=== PATIENT | female | born 1955 | race Asian ===

== ENCOUNTER 2021-04-23 08:50 | Inpatient (IN) | payer OTHER ==
[~2021-04-23] VITALS: Ht 154.9 cm; Wt 44.5 kg
[2021-04-23] MEDS ORDERED: ATOR40TA28 PO (08:56)
[2021-04-23] MEDS ORDERED: SACU1TAB PO (08:56)
[2021-04-23] MEDS ORDERED: MIRT30 PO (08:56)
[2021-04-23] MEDS ORDERED: FURO40 PO (08:56)
[2021-04-23 09:40] LABS: BASOPHILS % (AUTO) 1.2 % (0.0-2.0); EOSINOPHILS % (AUTO) 1.2 % (1.0-6.0); HEMATOCRIT 36.5 % (36-46); HEMOGLOBIN 12.1 g/dL (12.0-16.0); LYMPHOCYTES # (AUTO) 1.4 K/uL (1.0-4.8); LYMPHOCYTES % (AUTO) 25.2 % (22.0-44.0); MEAN CORPUSCULAR HEMOGLOBIN 30.7 pg (26.0-34.0); MEAN CORPUSCULAR VOLUME 93 fL (80-100); MONOCYTES # (AUTO) 0.3 K/uL (0.1-1.0); MONOCYTES % (AUTO) 5.7 % (2.0-9.0); NEUTROPHILS # (AUTO) 3.7 K/uL (1.8-7.7); NEUTROPHILS % (AUTO) 66.7 % (40.0-70.0); PLATELET COUNT (AUTO) 243 K/uL (150-450); RED BLOOD CELL COUNT(AUTO) 3.93 MIL/uL (4.00-5.20); RED CELL DISTRIBUTION WIDTH 12.9 % (11.5-14.5)
[2021-04-23 09:54] LABS: ANION GAP 10 mmol/L (8-16); CALCIUM, TOTAL 8.7 mg/dL (8.8-10.5); CARBON DIOXIDE 26 mmol/L (22-29); CHLORIDE 107 mmol/L (98-107); CREATININE 0.84 mg/dL (0.60-1.30); GLOMERULAR FILTR. RATE CALC > 60 mL/min (>60); GLUCOSE,RANDOM 103 mg/dL (70-110); POTASSIUM 4.3 mmol/L (3.5-5.1); SODIUM SERUM 143 mmol/L (136-145); UREA NITROGEN, BLOOD 21 mg/dL (7-18)
[2021-04-23 09:56] LABS: B-TYPE NATRIURETIC PEPTIDE 1150 pg/mL (0-100)
[2021-04-23 10:00] LABS: ALANINE AMINOTRANSFERASE 42 U/L (12-78); ALBUMIN 3.5 g/dL (3.4-5.0); ALKALINE PHOSPHATASE 71 U/L (46-116); ASPARTATE AMINOTRANSFERASE 36 U/L (15-37); BILIRUBIN,TOTAL 0.7 mg/dL (0.1-1.0); TOTAL PROTEIN, SERUM 7.5 g/dL (6.4-8.2)
[2021-04-23] MEDS ORDERED: ASPIRIN 81 MG CHEWABLE TABLET PO ONE (10:30)
[2021-04-23] MEDS ORDERED: NITROGLYCERIN 2% (1 GM=INCH) PACKET TP ONE (10:30)
[2021-04-23] MEDS ORDERED: FUROSEMIDE 40 MG/4 ML VIAL IVP ONE (11:00)
[2021-04-23 11:01] LABS: COVID AG,FIA SOURCE NASOPHARYNGEAL
[2021-04-23 11:14] LABS: PROTHROMBIN TIME 10.6 SEC (9.4-11.6)
[2021-04-23] MEDS ORDERED: HEPARIN SODIUM,PORCINE 5,000 UNITS/ML VIAL IVP ONE (11:30)
[2021-04-23] MEDS ORDERED: HEPARIN SODIUM 25000 UNITS/D5W 250 ML IV PRN (11:30)
[2021-04-23] MEDS ORDERED: ZOLPIDEM TARTRATE 5 MG TABLET PO PRN (11:45)
[2021-04-23] MEDS ORDERED: HEPARIN SODIUM,PORCINE 5,000 UNITS/ML VIAL IVP PRN ×2 (11:45)
[2021-04-23] MEDS ORDERED: MORPHINE SULFATE 2 MG/ML SYRINGE IVP PRN (11:45)
[2021-04-23] MEDS ORDERED: MAGNESIUM HYDROXIDE SUSPENSION 30 ML UDCUP PO PRN (11:45)
[2021-04-23] MEDS ORDERED: HYDROCODONE/ACETAMINOPHEN 5-325 MG TABLET PO PRN (11:45)
[2021-04-23] MEDS ORDERED: ONDANSETRON HCL 4 MG/2 ML VIAL IVP PRN (11:45)
[2021-04-23] MEDS ORDERED: BISACODYL 10 MG RECTAL RECTAL SUPPOSITORY PR PRN (11:45)
[2021-04-23] MEDS: ATORVASTATIN CALCIUM 40 MG TABLET PO SCH (14:32)
[2021-04-23] MEDS: METOPROLOL SUCCINATE 25 MG ER TABLET PO SCH (14:32)
[2021-04-23 20:49] VITALS: BP 118/66
[2021-04-23] MEDS: DOCUSATE SODIUM 100 MG CAPSULE PO SCH (20:58)
[2021-04-23] MEDS: FUROSEMIDE 20 MG/2 ML VIAL IVP SCH (20:59)
[2021-04-23] MEDS: SACUBITRIL/VALSARTAN 24-26 MG TABLET PO SCH (20:59)
[2021-04-23] MEDS: ACETAMINOPHEN 325 MG TABLET PO PRN (21:00)
[2021-04-23 23:30] VITALS: BP 107/62
[2021-04-24] MEDS ORDERED: HEPARIN SODIUM,PORCINE 5,000 UNITS/ML VIAL IVP PRN ×2 (00:45)
[2021-04-24] MEDS ORDERED: HEPARIN SODIUM,PORCINE 5,000 UNITS/ML VIAL IVP ONE (00:45)
[2021-04-24] MEDS ORDERED: HEPARIN SODIUM 25000 UNITS/D5W 250 ML IV PRN (00:45)
[2021-04-24 04:17] VITALS: BP 96/58
[2021-04-24 06:44] LABS: BASOPHILS % (AUTO) 1.6 % (0.0-2.0); HEMATOCRIT 42.2 % (36-46); HEMOGLOBIN 13.9 g/dL (12.0-16.0); LYMPHOCYTES # (AUTO) 2.6 K/uL (1.0-4.8); LYMPHOCYTES % (AUTO) 45.2 % (22.0-44.0); MEAN CORPUSCULAR HEMOGLOBIN 30.5 pg (26.0-34.0); MEAN CORPUSCULAR HGB CONC 32.9 G/dL (31.0-37.0); MEAN CORPUSCULAR VOLUME 93 fL (80-100); MONOCYTES # (AUTO) 0.4 K/uL (0.1-1.0); MONOCYTES % (AUTO) 6.7 % (2.0-9.0); NEUTROPHILS # (AUTO) 2.6 K/uL (1.8-7.7); NEUTROPHILS % (AUTO) 44.5 % (40.0-70.0); PLATELET COUNT (AUTO) 328 K/uL (150-450); RED BLOOD CELL COUNT(AUTO) 4.56 MIL/uL (4.00-5.20); RED CELL DISTRIBUTION WIDTH 13.1 % (11.5-14.5)
[2021-04-24 07:06] VITALS: BP 96/51
[2021-04-24 07:19] LABS: ANION GAP 13 mmol/L (8-16); CALCIUM, TOTAL 8.7 mg/dL (8.8-10.5); CARBON DIOXIDE 26 mmol/L (22-29); CHLORIDE 101 mmol/L (98-107); CREATININE 0.87 mg/dL (0.60-1.30); GLOMERULAR FILTR. RATE CALC > 60 mL/min (>60); GLUCOSE,RANDOM 102 mg/dL (70-110); POTASSIUM 3.3 mmol/L (3.5-5.1); SODIUM SERUM 140 mmol/L (136-145); UREA NITROGEN, BLOOD 21 mg/dL (7-18)
[2021-04-24] MEDS ORDERED: HEPARIN SODIUM,PORCINE 5,000 UNITS/ML VIAL SQ SCH (08:00)
[2021-04-24] MEDS ORDERED: POTASSIUM CHLORIDE 20 MEQ ER TABLET PO PRN (08:00)
[2021-04-24] MEDS: DOCUSATE SODIUM 100 MG CAPSULE PO SCH ×2 (08:44→20:02)
[2021-04-24] MEDS: ATORVASTATIN CALCIUM 40 MG TABLET PO SCH (08:44)
[2021-04-24] MEDS: PANTOPRAZOLE SODIUM 40 MG DR TABLET PO SCH (08:44)
[2021-04-24] MEDS: FUROSEMIDE 20 MG/2 ML VIAL IVP SCH ×2 (08:44→20:02)
[2021-04-24] MEDS: SACUBITRIL/VALSARTAN 24-26 MG TABLET PO SCH ×2 (08:46→20:02)
[2021-04-24] MEDS: METOPROLOL SUCCINATE 25 MG ER TABLET PO SCH (09:00)
[2021-04-24] MEDS ORDERED: ATORVASTATIN CALCIUM 40 MG TABLET PO SCH (09:00)
[2021-04-24 11:44] VITALS: BP 96/63
[2021-04-24 15:49] VITALS: BP 100/60
[2021-04-24 19:32] VITALS: BP 110/63
[2021-04-24] MEDS: ACETAMINOPHEN 325 MG TABLET PO PRN (20:02)
[2021-04-24 23:47] VITALS: BP 105/59
[2021-04-25 04:39] VITALS: BP 95/56
[2021-04-25 06:30] LABS: BASOPHILS % (AUTO) 0.8 % (0.0-2.0); EOSINOPHILS % (AUTO) 1.9 % (1.0-6.0); HEMATOCRIT 42.5 % (36-46); HEMOGLOBIN 14.1 g/dL (12.0-16.0); LYMPHOCYTES # (AUTO) 2.7 K/uL (1.0-4.8); LYMPHOCYTES % (AUTO) 51.8 % (22.0-44.0); MEAN CORPUSCULAR HEMOGLOBIN 30.6 pg (26.0-34.0); MEAN CORPUSCULAR HGB CONC 33.1 G/dL (31.0-37.0); MEAN CORPUSCULAR VOLUME 93 fL (80-100); MONOCYTES # (AUTO) 0.4 K/uL (0.1-1.0); MONOCYTES % (AUTO) 8.4 % (2.0-9.0); NEUTROPHILS # (AUTO) 1.9 K/uL (1.8-7.7); NEUTROPHILS % (AUTO) 37.1 % (40.0-70.0); PLATELET COUNT (AUTO) 318 K/uL (150-450); RED BLOOD CELL COUNT(AUTO) 4.59 MIL/uL (4.00-5.20); RED CELL DISTRIBUTION WIDTH 13.1 % (11.5-14.5)
[2021-04-25 06:48] LABS: ANION GAP 9 mmol/L (8-16); CARBON DIOXIDE 27 mmol/L (22-29); CHLORIDE 102 mmol/L (98-107); CREATININE 0.93 mg/dL (0.60-1.30); GLOMERULAR FILTR. RATE CALC > 60 mL/min (>60); GLUCOSE,RANDOM 101 mg/dL (70-110); POTASSIUM 4.2 mmol/L (3.5-5.1); SODIUM SERUM 138 mmol/L (136-145); UREA NITROGEN, BLOOD 32 mg/dL (7-18)
[2021-04-25 08:02] VITALS: BP 114/74
[2021-04-25] MEDS: METOPROLOL SUCCINATE 25 MG ER TABLET PO SCH (09:00)
[2021-04-25] MEDS: SACUBITRIL/VALSARTAN 24-26 MG TABLET PO SCH (09:00)
[2021-04-25] MEDS: PANTOPRAZOLE SODIUM 40 MG DR TABLET PO SCH (09:13)
[2021-04-25] MEDS: FUROSEMIDE 20 MG/2 ML VIAL IVP SCH (09:13)
[2021-04-25] MEDS: ATORVASTATIN CALCIUM 40 MG TABLET PO SCH (09:13)
[2021-04-25] MEDS: DOCUSATE SODIUM 100 MG CAPSULE PO SCH (09:13)
[2021-04-25 10:51] VITALS: BP 100/62
[2021-04-25] MEDS ORDERED: ASPI-1450 PO (11:05)
[2021-04-26] MEDS ORDERED: FUROSEMIDE 20 MG/2 ML VIAL IVP SCH (08:00)
== END 2021-04-25 12:55 | disposition home or self-care (01) | DRG 194 ==
LOC: EMS 08:54 → 5S 17:20
PROVIDERS: ADMIT Internal Medicine; ATTEND Internal Medicine
DX: I11.0 Hypertensive heart disease with heart failure (principal); E44.0 Moderate protein-calorie malnutrition; E78.5 Hyperlipidemia, unspecified; I50.43 Acute on chronic combined systolic (congestive) and diastolic (congestive) heart failure; Z20.822 Contact with and (suspected) exposure to COVID-19; E87.6 Hypokalemia; Z79.899 Other long term (current) drug therapy; Z95.810 Presence of automatic (implantable) cardiac defibrillator; Z68.1 Body mass index [BMI] 19.9 or less, adult
CPT/HCPCS: 71045; 80048; 80053; 83880; 84132; 84484; 85025; 85610; 85730; 93005; 93306; 99285; J1644; J1940; Q9967; 36415-L1; 36415-TC